=== PATIENT | female | born 1980 | race Caucasian/White ===

== ENCOUNTER 2019-08-06 11:06 | Emergency (ER) | payer OTHER ==
[~2019-08-06] VITALS: Ht 170.2 cm; Wt 72.6 kg
[2019-08-06] MEDS ORDERED: PREDNISONE 20 MG TAB PO ONE (11:45)
[2019-08-06] MEDS ORDERED: CYCLOBENZAPRINE HCL 10 MG TAB PO ONE (11:45)
[2019-08-06] MEDS ORDERED: IBUPROFEN 400 MG TAB PO ONE (11:45)
--- NOTE | 2019-08-06 12:07 | Diagnostic Imaging Report ---
EXAMINATION: CERVICAL 3 VIEWS INDICATION: Trauma COMPARISON: None FINDINGS: AP, lateral and odontoid views of the cervical spine demonstrate no acute fracture or dislocation. Alignment appears anatomic. Vertebral body heights are maintained. Prevertebral soft tissues are normal in thickness. IMPRESSION: No acute osseous injury of the cervical spine. Signed by: Shaw Andrews MD on 08/06/2019 12:04 PM
== END 2019-08-06 13:16 | disposition home or self-care (01) ==
LOC: ER 11:06
DX: S16.1XXA Strain of muscle, fascia and tendon at neck level, initial encounter (principal); V43.52XA Car driver injured in collision with other type car in traffic accident, initial encounter; Y92.488 Other paved roadways as the place of occurrence of the external cause; G40.909 Epilepsy, unspecified, not intractable, without status epilepticus; F17.210 Nicotine dependence, cigarettes, uncomplicated
CPT/HCPCS: 72040; 99282; J7512